=== PATIENT | female | born 1980 | race Caucasian/White ===

== ENCOUNTER 2018-02-20 18:37 | Emergency (ER) | payer MEDICAID ==
[~2018-02-20] VITALS: Ht 167.6 cm; Wt 90.2 kg
[2018-02-20 18:47] VITALS: BP 119/63
== END 2018-02-20 19:37 | disposition home or self-care (01) ==
LOC: ER 18:39
DX: G57.32 Lesion of lateral popliteal nerve, left lower limb (principal)
CPT/HCPCS: 73610; 99284

== ENCOUNTER 2024-03-30 09:05 | Emergency (ER) | payer MEDICAID ==
[~2024-03-30] VITALS: Ht 165.1 cm; Wt 88.8 kg
[2024-03-30 09:13] VITALS: TEMP 97.8
[2024-03-30 09:41] LABS: BASOPHILS % (AUTO) 0.6 % (0-1); EOSINOPHILS # (AUTO) 0.1 X10'3 (0-0.9); EOSINOPHILS % (AUTO) 2.2 % (0-6); HEMATOCRIT 38.8 % (35.0-45.0); HEMOGLOBIN 12.6 g/dl (12.0-16.0); LYMPHOCYTES # (AUTO) 1.4 X10'3 (1.1-4.8); LYMPHOCYTES % (AUTO) 21.9 % (21-51); MEAN CORPUSCULAR HGB CONC 32.4 g/dL (33.0-36.5); MEAN CORPUSCULAR VOLUME 80.3 FL (78-98); MEAN PLATELET VOLUME 7.5 FL (7.4-10.4); MONOCYTES # (AUTO) 0.3 X10'3 (0-0.9); MONOCYTES % (AUTO) 4.8 % (2-12); NEUTROPHILS # (AUTO) 4.5 X10'3 (1.8-7.7); NEUTROPHILS % (AUTO) 70.5 % (42-75); PLATELET COUNT 302 X10'3 (140-440); RED BLOOD COUNT 4.83 X10'6 (4.20-5.60); RED CELL DISTRIBUTION WIDTH 15.6 % (11.5-14.5); WHITE BLOOD COUNT 6.4 X10'3 (4.5-11.0)
[2024-03-30 10:00] LABS: ALBUMIN 3.4 G/DL (3.4-5.0); ANION GAP 10 (8-16); BLOOD UREA NITROGEN 12 MG/DL (7-18); BUN/CREATININE RATIO 17.1 (10.0-20.0); CALCIUM 8.8 MG/DL (8.5-10.1); CHLORIDE 105 MMOL/L (99-107); GLUCOSE 166 MG/DL (70-104); POTASSIUM 3.9 MMOL/L (3.5-5.1); PRO BRAIN NATRIURETIC PEPTIDE 167 PG/ML (0-125); SODIUM 140 MMOL/L (135-145); TOTAL CARBON DIOXIDE 25.1 MMOL/L (24-32); eCRCL 91 ML/MIN; eGFR 90 ML/MIN
[2024-03-30] MEDS ORDERED: ketorolac trometh 15mg/ml vial 15 MG/ML ML IM ONE (10:05)
[2024-03-30] MEDS: LORazepam 1 MG tablet PO ONE (10:29)
[2024-03-30] MEDS: ketorolac trometh 30MG/ML vial 30 MG/ML VIAL IM ONE (10:29)
[2024-03-30 12:39] VITALS: BP 163/105; PULSE 82; RESP 16; O2SAT 97
== END 2024-03-30 12:44 | disposition home or self-care (01) ==
LOC: ER 09:05
DX: R07.89 Other chest pain (principal); R07.81 Pleurodynia; F41.9 Anxiety disorder, unspecified; Z59.01 Sheltered homelessness; Z88.8 Allergy status to other drugs, medicaments and biological substances
CPT/HCPCS: 36415; 71045; 80048; 83880; 84484; 85025; 93005; 96372; 99285; J1885

== ENCOUNTER 2025-03-23 11:13 | Emergency (ER) | payer MEDICAID ==
[~2025-03-23] VITALS: Ht 165.1 cm; Wt 96.9 kg
[2025-03-23 11:18] VITALS: TEMP 98.3
--- NOTE | 2025-03-23 11:18 | ELECTROCARDIOGRAPH REPORT ---
[facility] Test Date: 2025-03-23 Test Time: 11:16:34 Pat Name: DARIAN CADENA Department: EMERGENCY ROOM Room: Gender: F [employer]: LUIZA : 1980 Requested By: KENNY FLORES Order Number: [id number] Reading MD: Measurements Intervals [place] Rate: 93 P: 36 DE: 123 QRS: 40 QRSD: 79 T: 33 QT: 359 QTc: 447 Interpretive Statements Sinus rhythm Please click the below link to view image of tracing.
[2025-03-23 11:31] LABS: MEAN PLATELET VOLUME 7.2 FL (7.4-10.4); RED CELL DISTRIBUTION WIDTH 16.8 % (11.5-14.5)
[2025-03-23 11:52] LABS: CREATININE 0.59 MG/DL (0.40-0.90); PRO BRAIN NATRIURETIC PEPTIDE 229 PG/ML (0-125); TOTAL CARBON DIOXIDE 23.5 MMOL/L (24-32); eCRCL 108 ML/MIN; eGFR > 90 ML/MIN
--- NOTE | 2025-03-23 11:54 | RADIOLOGY REPORT ---
CHEST RADIOGRAPH Indication: CP Technique: DI CHEST,SINGLE VIEW Comparison: None FINDINGS: The cardiac silhouette is unremarkable. The lungs demonstrate no pulmonary airspace consolidation. Th e pulmonary vasculature is mildly prominent. There is no pleural effusion. There is no pneumothorax. IMPRESSION: Mild pulmonary vasculature congestion.
[2025-03-23 13:16] VITALS: BP 167/114; PULSE 82; RESP 16; O2SAT 98
--- NOTE | 2025-03-23 13:23 | Physician Documentation ---
History of Present Illness ~ Chief Complaint: Chest Pain Stated Complaint: CP Time Seen by MD: 13:13 Primary Medical Doctor: Ila Mode of Arrival: Ambulatory HPI This 44-year-old male with a history of cigarette smoking presents today with a complaint of midsternal chest pain. She denies any shortness of breath nausea vomiting. 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 She says the chest pain as mostly resolve and '"needs to go to an appointment." Day of Onset: Mar 23, 2025 Tetanus within 5 Years?: No ([facility]) Allergies: Coded Allergies: acetaminophen (Verified Allergy, Unknown, 03/23/25) hydrocodone (Verified Allergy, Unknown, 03/23/25) Active Prescriptions See Medication Reconciliation Form. Past Medical History Past Medical History: No Pertinent History Past Surgical History: noncontributory Alcohol Use: None Drug Use: none Lives with: Family Lives In: Home Review of Systems All Other Systems at this time: Reviewed and Negative ROS As stated above in the HPI, otherwise all systems are reviewed and negative. Physical Exam Vital Signs: Temperature: 98.3, Source: Oral, Heart Rate: 82, Respiratory Rate: 16, BP: 167/114, Pulse Oximetry: 98, Weight: 96.900 Oxygen Flow Rate: 0 Physical Exam General: Alert, no apparent distress. Respiratory: Lungs clear, no respiratory distress. Cardiovascular: Regular rate and rhythm, no murmurs. Extremities: Normal range of motion, no deformity. Neurologic: Oriented x4. Psychiatric: Normal mood and affect. Skin: Normal color, warm and dry. No edema, no ecchymosis. Progress Results/Orders Results/Orders Vital Signs 03/23/25 03/23/25 03/23/25 03/23/25 11:18 11:42 12:18 13:16 Temp 98.3 Pulse 89 78 82 Resp 16 16 20 16 B/P (MAP) 164/103 169/110 (129) 167/114 (131) Pulse Ox 97 99 98 O2 Flow Rate 0 0 0 Laboratory Tests Test 03/23/25 11:15 White Blood Count 8.9 Red Blood Count 4.86 Hemoglobin 13.3 Hematocrit 39.1 Mean Corpuscular Volume 80.4 Mean Corpuscular Hemoglobin 27.4 Mean Corpuscular Hemoglobin Concent 34.0 Red Cell Distribution Width 16.8 H Platelet Count 323 Mean Platelet Volume 7.2 L Neutrophils (%) (Auto) 70.7 Lymphocytes (%) (Auto) 19.7 L Monocytes (%) (Auto) 7.1 Eosinophils (%) (Auto) 1.8 Basophils (%) (Auto) 0.7 Neutrophils # (Auto) 6.3 Lymphocytes # (Auto) 1.8 Monocytes # (Auto) 0.6 Eosinophils # (Auto) 0.2 Basophils # (Auto) 0.1 CBC Comment Sodium Level 138 Potassium Level 3.9 Chloride Level 107 Carbon Dioxide Level 23.5 L Anion Gap 8 Blood Urea Nitrogen 11 Creatinine 0.59 Estimated GFR/1.73 m2 > 90 BUN/Creatinine Ratio 18.6 Glucose Level 97 Calcium Level 8.4 L Troponin I High Sensitivity 5 Pro-B-Type Natriuretic Peptide 229 H Albumin 3.3 L Chemistry Comments Medical Decision Making Findings 44-year-old male did not show any signs of acute cardiac events based on her la boratory values chest x-ray and EKG. However I do suspect increased stress levels combine with potentially costochondritis related to cigarette smoking. The patient verbalized that she thinks her issues or primarily stress related which seem reasonable to me. Talked about ways of relieving or stress which she said she is working on getting respite at home. Differential Dx:Considerations: Include: Chest wall contusion, Flail chest, Myocardial contusion, Pneumothorax, Pulmonary contusion, Rib fracture, Renal contusion, Splenic fracture, Tension pneumothorax, Other Departure Disposition: 01 HOME / SELF CARE / HOMELESS Impression: Primary Impression: Anxiety Additional Impressions: Tenderness of chest wall Cigarette smoker Condition: Stable Discharge Instructions: Nonspecific Chest Pain, Adult Referrals: NO PRIMARY CARE PROVIDER (PCP) Signature Scribe Signature: v Attestation: Scribed for Ron Pearson Lpn [employer] by Ron Shine NP . 03/23/25 13:23 RON PEARSON NP Mar 23, 2025 13:23
== END 2025-03-23 13:33 | disposition home or self-care (01) ==
LOC: ER 11:14
DX: R07.89 Other chest pain (principal); F41.9 Anxiety disorder, unspecified; F17.210 Nicotine dependence, cigarettes, uncomplicated; Z88.5 Allergy status to narcotic agent
CPT/HCPCS: 36415; 71045; 80048; 83880; 84484; 85025; 93005; 99285